=== PATIENT | female | born 1955 ===

== ENCOUNTER 2021-08-11 16:25 | Inpatient (IN) | payer MEDICARE, OTHER ==
[~2021-08-11] VITALS: Ht 152.4 cm; Wt 40.9 kg
[2021-08-11 17:58] LABS: Basophils # (auto) 0.1 10 ^3/uL (0-0.2); Basophils % (auto) 0.9 % (0.0-2.0); Eosinophils # (auto) 0 10 ^3/uL (0-0.8); Eosinophils % (auto) 0.2 % (0.0-7.0); Hematocrit 50.7 % (36.0-46.0); Hemoglobin 16.5 g/dL (12.2-16.2); Lymphocytes # (auto) 0.6 10 ^3/uL (0.4-5.4); Lymphocytes % (auto) 9.6 % (10.0-50.0); Mean Corpuscular Hemoglobin 32.2 pg (28.0-32.0); Mean Corpuscular Hgb Conc. 32.6 g/dL (32.0-36.0); Mean Corpuscular Volume 98.9 fL (80.0-100.0); Monocytes # (auto) 0.5 10 ^3/uL (0-1.3); Monocytes % (auto) 7.9 % (0.0-12.0); Neutrophils % (auto) 81.4 % (37.0-80.0); Nucleated Red Blood Cells % 0.3 %; Red Blood Cells 5.13 10^6/uL (4.0-5.20); White Blood Cell 6.1 10^3/uL (4.4-10.8)
[2021-08-11 18:17] LABS: Calcium 9.1 mg/dL (8.5-10.1); Potassium 3.6 mmol/L (3.5-5.1)
[2021-08-11 18:24] LABS: BUN/Creatinine Ratio 25.7; Bilirubin, Total 0.5 mg/dL (0.2-1.0); Total Protein 6.9 g/dL (6.4-8.2)
[2021-08-11] MEDS ORDERED: IOHEXOL 350 MG/ML 100ML IJ ONE (21:53)
[2021-08-12] MEDS ORDERED: cefTRIAXone 1GM/50ML D5W 50 ML IV ONE (00:45)
[2021-08-12] MEDS ORDERED: AZITHROMYCIN 500MG/ 250ML 250 ML IV ONE (00:45)
[2021-08-12] MEDS ORDERED: ONDANSETRON HCL 4 MG/2 ML VIAL IV PRN (02:00)
[2021-08-12] MEDS ORDERED: ALBUTEROL SULF 2.5 MG/0.5ML(0.5%) NEB SOLN NEB PRN (02:00)
[2021-08-12 04:34] LABS: INR 1.1 (0.9-1.15)
[2021-08-12] MEDS ORDERED: ENOXAPARIN SOD 40 MG/0.4 ML SYRINGE SC SCH (10:00)
[2021-08-12] MEDS ORDERED: ZINC SULFATE 220mg CAP or TAB PO SCH (10:00)
[2021-08-12] MEDS: PANTOPRAZOLE 40 MG TAB PO SCH (10:02)
[2021-08-12] MEDS: ASCORBIC ACID 500 MG TAB PO SCH ×2 (10:02→21:21)
[2021-08-12 16:45] VITALS: BP 121/83
[2021-08-12] MEDS ORDERED: Ensure HIGH Protein Chocolate 8oz Bottle PO SCH (18:00)
[2021-08-12] MEDS: ALBUTEROL SULF 2.5 MG/0.5ML(0.5%) NEB SOLN NEB SCH ×2 (19:22→23:26)
[2021-08-12] MEDS: ACETYLCYSTEINE 10 %(100MG/ML) SOL 4ML NEB SCH ×2 (19:22→23:26)
[2021-08-12] MEDS: IPRATROPIUM BROM 0.5 MG/2.5ML INH SOL NEB SCH ×2 (19:22→23:26)
[2021-08-12 19:55] VITALS: BP 107/68
[2021-08-12] MEDS: cefTRIAXone 1GM/50ML D5W 50 ML IV SCH (21:21)
[2021-08-12] MEDS ORDERED: AZITHROMYCIN 500MG/ 250ML 250 ML IV SCH (22:00)
[2021-08-13 05:38] VITALS: BP 143/97
[2021-08-13 07:34] LABS: Basophils # (auto) 0 10 ^3/uL (0-0.2); Basophils % (auto) 0.8 % (0.0-2.0); Eosinophils # (auto) 0 10 ^3/uL (0-0.8); Eosinophils % (auto) 0.8 % (0.0-7.0); Hemoglobin 13.9 g/dL (12.2-16.2); Lymphocytes # (auto) 0.6 10 ^3/uL (0.4-5.4); Lymphocytes % (auto) 9.7 % (10.0-50.0); Mean Corpuscular Hemoglobin 33.4 pg (28.0-32.0); Mean Corpuscular Hgb Conc. 33.8 g/dL (32.0-36.0); Mean Corpuscular Volume 98.6 fL (80.0-100.0); Monocytes # (auto) 0.9 10 ^3/uL (0-1.3); Neutrophils # (auto) 4.4 10 ^3/uL (1.6-8.6); Neutrophils % (auto) 73.7 % (37.0-80.0); Nucleated Red Blood Cells % 0.1 %; Red Blood Cells 4.16 10^6/uL (4.0-5.20); White Blood Cell 5.9 10^3/uL (4.4-10.8)
[2021-08-13 07:40] LABS: Potassium 3.4 mmol/L (3.5-5.1)
[2021-08-13 08:07] LABS: Albumin 2.5 g/dL (3.4-5.0); BUN/Creatinine Ratio 28.6; Bilirubin, Total 0.5 mg/dL (0.2-1.0); Calcium 8.3 mg/dL (8.5-10.1); Total Protein 5.4 g/dL (6.4-8.2)
[2021-08-13] MEDS: ALBUTEROL SULF 2.5 MG/0.5ML(0.5%) NEB SOLN NEB SCH ×4 (08:25→19:58)
[2021-08-13] MEDS: ACETYLCYSTEINE 10 %(100MG/ML) SOL 4ML NEB SCH ×4 (08:25→19:58)
[2021-08-13] MEDS: IPRATROPIUM BROM 0.5 MG/2.5ML INH SOL NEB SCH ×4 (08:25→19:57)
[2021-08-13 09:00] VITALS: BP 128/81
[2021-08-13] MEDS: PANTOPRAZOLE 40 MG TAB PO SCH (10:01)
[2021-08-13] MEDS: DOXYCYCLINE 100MG/250ML 250 ML IV SCH ×2 (10:01→21:22)
[2021-08-13] MEDS: ASCORBIC ACID 500 MG TAB PO SCH ×2 (10:01→21:22)
[2021-08-13 13:00] VITALS: BP 109/77
[2021-08-13 17:00] VITALS: BP 116/79
[2021-08-13] MEDS: Ensure Pudding Vanilla 4 oz Cup PO SCH ×2 (18:00→19:31)
[2021-08-13] MEDS: cefTRIAXone 1GM/50ML D5W 50 ML IV SCH (21:21)
[2021-08-13 21:30] VITALS: BP 114/77
[2021-08-14 05:00] VITALS: BP 140/91
[2021-08-14] MEDS: IPRATROPIUM BROM 0.5 MG/2.5ML INH SOL NEB SCH ×3 (07:04→19:51)
[2021-08-14] MEDS: ALBUTEROL SULF 2.5 MG/0.5ML(0.5%) NEB SOLN NEB SCH ×3 (07:04→19:51)
[2021-08-14] MEDS: ACETYLCYSTEINE 10 %(100MG/ML) SOL 4ML NEB SCH ×3 (07:05→19:51)
[2021-08-14] MEDS: Ensure Pudding Vanilla 4 oz Cup PO SCH ×3 (08:00→18:11)
[2021-08-14 09:00] VITALS: BP 120/82
[2021-08-14] MEDS: DOXYCYCLINE 100MG/250ML 250 ML IV SCH (10:54)
[2021-08-14] MEDS: PANTOPRAZOLE 40 MG TAB PO SCH (10:54)
[2021-08-14] MEDS: ASCORBIC ACID 500 MG TAB PO SCH ×2 (10:54→21:38)
[2021-08-14 13:00] VITALS: BP 138/93
[2021-08-14] MEDS ORDERED: VANCOMYCIN PER PHARMACY 0 MG IV SCH (14:00)
[2021-08-14] MEDS ORDERED: VANCOMYCIN 1GM/250ML 250 ML IV ONE (15:00)
[2021-08-14 17:00] VITALS: BP 138/91
[2021-08-14] MEDS: cefTRIAXone 1GM/50ML D5W 50 ML IV SCH (21:38)
[2021-08-14] MEDS: DOXYCYCLINE 100 MG TAB/CAP PO SCH (21:38)
[2021-08-14 22:00] VITALS: BP 118/83
[2021-08-15 05:00] VITALS: BP 123/83
[2021-08-15] MEDS: ACETYLCYSTEINE 10 %(100MG/ML) SOL 4ML NEB SCH ×6 (06:29→23:11)
[2021-08-15] MEDS: ALBUTEROL SULF 2.5 MG/0.5ML(0.5%) NEB SOLN NEB SCH ×6 (06:29→23:11)
[2021-08-15] MEDS: IPRATROPIUM BROM 0.5 MG/2.5ML INH SOL NEB SCH ×6 (06:30→23:11)
[2021-08-15 07:04] LABS: Basophils # (auto) 0 10 ^3/uL (0-0.2); Basophils % (auto) 0.7 % (0.0-2.0); Eosinophils # (auto) 0 10 ^3/uL (0-0.8); Eosinophils % (auto) 0.6 % (0.0-7.0); Hematocrit 40.9 % (36.0-46.0); Hemoglobin 13.7 g/dL (12.2-16.2); Lymphocytes # (auto) 0.6 10 ^3/uL (0.4-5.4); Lymphocytes % (auto) 9.8 % (10.0-50.0); Mean Corpuscular Hemoglobin 32.7 pg (28.0-32.0); Mean Corpuscular Hgb Conc. 33.6 g/dL (32.0-36.0); Mean Corpuscular Volume 97.5 fL (80.0-100.0); Monocytes # (auto) 0.9 10 ^3/uL (0-1.3); Monocytes % (auto) 16.7 % (0.0-12.0); Neutrophils # (auto) 4.1 10 ^3/uL (1.6-8.6); Neutrophils % (auto) 72.2 % (37.0-80.0); Nucleated Red Blood Cells % 0.2 %; Red Cell Distribution Width 13.9 % (11.8-14.3); White Blood Cell 5.7 10^3/uL (4.4-10.8)
[2021-08-15 07:21] LABS: Potassium 3.3 mmol/L (3.5-5.1)
[2021-08-15 07:29] LABS: BUN/Creatinine Ratio 19.4; Calcium 7.9 mg/dL (8.5-10.1)
[2021-08-15] MEDS: DOXYCYCLINE 100 MG TAB/CAP PO SCH ×2 (10:41→21:06)
[2021-08-15] MEDS: PANTOPRAZOLE 40 MG TAB PO SCH (10:42)
[2021-08-15] MEDS: ASCORBIC ACID 500 MG TAB PO SCH ×2 (10:42→21:06)
[2021-08-15] MEDS ORDERED: POTASSIUM EFFERVESENT TAB 25 MEQ PO ONE (12:15)
[2021-08-15] MEDS: Ensure Pudding Vanilla 4 oz Cup PO SCH ×3 (13:43→19:25)
[2021-08-15] MEDS: VANCOMYCIN 500 MG in D5W 5% 100 ML IV SCH ×2 (15:54→23:00)
[2021-08-15 20:11] LABS: Urine Bacteria NONE SEEN /hpf (None Seen); Urine Blood Negative /uL (Negative); Urine Mucus FEW (None Seen); Urine WBC 5 /hpf (0 - 5)
[2021-08-15 20:23] LABS: Protein, Urine 29.3 mg/dL (0.0-11.9)
[2021-08-15] MEDS: cefTRIAXone 1GM/50ML D5W 50 ML IV SCH (21:06)
[2021-08-15 22:00] VITALS: BP 119/79
[2021-08-16 05:00] VITALS: BP 119/84
[2021-08-16] MEDS: ALBUTEROL SULF 2.5 MG/0.5ML(0.5%) NEB SOLN NEB SCH ×2 (06:00→19:25)
[2021-08-16] MEDS: IPRATROPIUM BROM 0.5 MG/2.5ML INH SOL NEB SCH ×3 (06:00→19:25)
[2021-08-16] MEDS: ACETYLCYSTEINE 10 %(100MG/ML) SOL 4ML NEB SCH ×2 (06:02→19:25)
[2021-08-16 06:21] LABS: BUN/Creatinine Ratio 29.7; Calcium 7.8 mg/dL (8.5-10.1); Potassium 4.4 mmol/L (3.5-5.1)
[2021-08-16] MEDS: VANCOMYCIN 500 MG in D5W 5% 100 ML IV SCH ×2 (06:26→15:14)
[2021-08-16 08:00] VITALS: BP 111/71
[2021-08-16] MEDS: DOXYCYCLINE 100 MG TAB/CAP PO SCH ×2 (10:32→21:39)
[2021-08-16] MEDS: Ensure Pudding Vanilla 4 oz Cup PO SCH ×3 (10:32→19:26)
[2021-08-16] MEDS: ASCORBIC ACID 500 MG TAB PO SCH ×2 (10:32→21:39)
[2021-08-16] MEDS: PANTOPRAZOLE 40 MG TAB PO SCH (10:33)
[2021-08-16 12:00] VITALS: BP 123/72
[2021-08-16] MEDS: LORazepam 0.5 MG TAB PO PRN (15:15)
[2021-08-16 17:00] VITALS: BP 130/70
[2021-08-16] MEDS: ACETAMINOPHEN 325 MG TAB PO PRN (21:39)
[2021-08-16] MEDS: cefTRIAXone 1GM/50ML D5W 50 ML IV SCH (21:39)
[2021-08-16 22:00] VITALS: BP 138/91
[2021-08-17 05:13] VITALS: BP 115/70
[2021-08-17 06:05] LABS: Calcium 7.9 mg/dL (8.5-10.1); Potassium 3.9 mmol/L (3.5-5.1)
[2021-08-17 06:07] LABS: BUN/Creatinine Ratio 27.8
[2021-08-17] MEDS: IPRATROPIUM BROM 0.5 MG/2.5ML INH SOL NEB SCH ×4 (07:58→19:17)
[2021-08-17] MEDS: ALBUTEROL SULF 2.5 MG/0.5ML(0.5%) NEB SOLN NEB SCH ×4 (07:58→19:17)
[2021-08-17] MEDS: ACETYLCYSTEINE 10 %(100MG/ML) SOL 4ML NEB SCH ×4 (07:59→19:17)
[2021-08-17 09:28] VITALS: BP 122/81
[2021-08-17] MEDS: DOXYCYCLINE 100 MG TAB/CAP PO SCH ×2 (10:17→21:18)
[2021-08-17] MEDS: PANTOPRAZOLE 40 MG TAB PO SCH (10:17)
[2021-08-17] MEDS: ASCORBIC ACID 500 MG TAB PO SCH ×2 (10:17→21:19)
[2021-08-17] MEDS: Ensure Pudding Vanilla 4 oz Cup PO SCH ×2 (10:17→14:02)
[2021-08-17 13:51] VITALS: BP 121/83
[2021-08-17] MEDS: LORazepam 0.5 MG TAB PO PRN (17:02)
[2021-08-17 17:13] VITALS: BP 127/87
[2021-08-17] MEDS: cefTRIAXone 1GM/50ML D5W 50 ML IV SCH (21:18)
[2021-08-17] MEDS: ACETAMINOPHEN 325 MG TAB PO PRN (21:19)
[2021-08-17 22:00] VITALS: BP 126/81
[2021-08-18] MEDS: ACETYLCYSTEINE 10 %(100MG/ML) SOL 4ML NEB SCH ×4 (00:13→21:01)
[2021-08-18] MEDS: ALBUTEROL SULF 2.5 MG/0.5ML(0.5%) NEB SOLN NEB SCH ×4 (00:13→21:01)
[2021-08-18] MEDS: IPRATROPIUM BROM 0.5 MG/2.5ML INH SOL NEB SCH ×4 (00:13→21:01)
[2021-08-18 05:00] VITALS: BP 106/77
[2021-08-18 07:02] LABS: Potassium 4.3 mmol/L (3.5-5.1)
[2021-08-18 07:07] LABS: BUN/Creatinine Ratio 47.8; Calcium 8.5 mg/dL (8.5-10.1)
[2021-08-18] MEDS: Ensure Pudding Vanilla 4 oz Cup PO SCH ×3 (08:00→18:28)
[2021-08-18] MEDS: DOXYCYCLINE 100 MG TAB/CAP PO SCH ×2 (08:57→21:30)
[2021-08-18] MEDS: ASCORBIC ACID 500 MG TAB PO SCH ×2 (08:57→21:30)
[2021-08-18] MEDS: PANTOPRAZOLE 40 MG TAB PO SCH (08:57)
[2021-08-18 09:05] VITALS: BP_SYST 103; BP_SYST 124; BP_DIAS 65; BP_DIAS 84
[2021-08-18] MEDS ORDERED: IOHEXOL 300 MG/ML 100ML BOTTLE IJ ONE (11:15)
[2021-08-18 13:00] VITALS: BP 124/85
[2021-08-18] MEDS ORDERED: LORazepam 2MG/ML-1ML VIAL IV ONE (13:45)
[2021-08-18] MEDS ORDERED: GADOTERATE MEG 7.5 MMOL/15ml INJ (0.5MMOL/ml) IV ONE (14:22)
[2021-08-18] MEDS: SODIUM CHLORIDE 0.9% 1,000 ML IV SCH (14:24)
[2021-08-18 17:03] VITALS: BP 111/67
[2021-08-18] MEDS: cefTRIAXone 1GM/50ML D5W 50 ML IV SCH (21:30)
[2021-08-18 22:00] VITALS: BP 131/85
[2021-08-19] VITALS (7 sets, daily range): BP systolic 125–139; BP diastolic 83–94
[2021-08-19] MEDS: SODIUM CHLORIDE 0.9% 1,000 ML IV SCH ×3 (00:35→15:40)
[2021-08-19] MEDS: ACETAMINOPHEN 325 MG TAB PO PRN (00:53)
[2021-08-19] MEDS: ACETYLCYSTEINE 10 %(100MG/ML) SOL 4ML NEB SCH ×4 (06:00→19:04)
[2021-08-19] MEDS: ALBUTEROL SULF 2.5 MG/0.5ML(0.5%) NEB SOLN NEB SCH ×4 (06:00→19:04)
[2021-08-19] MEDS: IPRATROPIUM BROM 0.5 MG/2.5ML INH SOL NEB SCH ×4 (06:00→19:05)
[2021-08-19] MEDS: Ensure Pudding Vanilla 4 oz Cup PO SCH ×3 (08:00→18:00)
[2021-08-19 08:08] LABS: BUN/Creatinine Ratio 32.1; Calcium 8.3 mg/dL (8.5-10.1); Potassium 4.1 mmol/L (3.5-5.1)
[2021-08-19] MEDS: ASCORBIC ACID 500 MG TAB PO SCH ×2 (10:22→21:24)
[2021-08-19] MEDS: DexAMETHasone 4 MG TAB PO SCH ×2 (10:22→21:24)
[2021-08-19] MEDS: PANTOPRAZOLE 40 MG TAB PO SCH (10:22)
[2021-08-19] MEDS: DOXYCYCLINE 100 MG TAB/CAP PO SCH ×2 (10:22→21:24)
[2021-08-19 19:17] LABS: INR 0.99 (0.9-1.15); Partial Thromboplastin Time 29.9 sec (23.6-33.0)
[2021-08-19] MEDS: cefTRIAXone 1GM/50ML D5W 50 ML IV SCH (21:25)
[2021-08-20] MEDS: LORazepam 0.5 MG TAB PO PRN (01:22)
[2021-08-20] MEDS: SODIUM CHLORIDE 0.9% 1,000 ML IV SCH (02:51)
[2021-08-20 05:00] VITALS: BP 139/100
[2021-08-20] MEDS: IPRATROPIUM BROM 0.5 MG/2.5ML INH SOL NEB SCH ×4 (06:08→18:34)
[2021-08-20] MEDS: ACETYLCYSTEINE 10 %(100MG/ML) SOL 4ML NEB SCH ×4 (06:09→18:34)
[2021-08-20] MEDS: ALBUTEROL SULF 2.5 MG/0.5ML(0.5%) NEB SOLN NEB SCH ×4 (06:09→18:34)
[2021-08-20] MEDS: Ensure Pudding Vanilla 4 oz Cup PO SCH ×3 (08:00→18:25)
[2021-08-20] MEDS: DexAMETHasone 4 MG TAB PO SCH ×2 (08:47→21:57)
[2021-08-20] MEDS: ASCORBIC ACID 500 MG TAB PO SCH ×2 (08:47→21:57)
[2021-08-20] MEDS: PANTOPRAZOLE 40 MG TAB PO SCH (08:47)
[2021-08-20] MEDS: DOXYCYCLINE 100 MG TAB/CAP PO SCH ×2 (08:47→21:57)
[2021-08-20] MEDS ORDERED: ceFAZolin 1GM VL ONE (09:39)
[2021-08-20] MEDS ORDERED: HEPARIN 1,000 UNITS/ml 1ML VIAL ONE (09:40)
[2021-08-20] MEDS ORDERED: HEPARIN SODIUM (PORCINE) 5000 UNITS/ML 1ML VIAL ONE (09:40)
[2021-08-20] MEDS ORDERED: ceFAZolin 1GM/50ML 50 ML IV ONE (09:50)
[2021-08-20 09:53] VITALS: BP 137/84
[2021-08-20] MEDS ORDERED: PANT40T PO (10:36)
[2021-08-20] MEDS ORDERED: ALBUAER3 IN (10:36)
[2021-08-20 12:06] LABS: Basophils # (auto) 0 10 ^3/uL (0-0.2); Basophils % (auto) 0.4 % (0.0-2.0); Eosinophils # (auto) 0 10 ^3/uL (0-0.8); Eosinophils % (auto) 0.1 % (0.0-7.0); Hematocrit 39.1 % (36.0-46.0); Hemoglobin 12.9 g/dL (12.2-16.2); Lymphocytes # (auto) 0.6 10 ^3/uL (0.4-5.4); Mean Corpuscular Hgb Conc. 32.9 g/dL (32.0-36.0); Mean Corpuscular Volume 97.2 fL (80.0-100.0); Monocytes # (auto) 0.5 10 ^3/uL (0-1.3); Monocytes % (auto) 8.8 % (0.0-12.0); Neutrophils # (auto) 5.1 10 ^3/uL (1.6-8.6); Neutrophils % (auto) 81.7 % (37.0-80.0); Nucleated Red Blood Cells % 0.9 %; Red Blood Cells 4.02 10^6/uL (4.0-5.20); Red Cell Distribution Width 13.7 % (11.8-14.3); White Blood Cell 6.2 10^3/uL (4.4-10.8)
[2021-08-20 12:25] LABS: BUN/Creatinine Ratio 34.5; Calcium 8.8 mg/dL (8.5-10.1); Potassium 4.1 mmol/L (3.5-5.1)
[2021-08-20] MEDS ORDERED: fentaNYL CITRATE 100 MCG/2 ML VL ONE (12:28)
[2021-08-20] MEDS ORDERED: PROPOFOL 10 MG/ML 20 ML IV ONE (12:28)
[2021-08-20] MEDS ORDERED: ONDANSETRON HCL 4 MG/2 ML VIAL ONE (12:28)
[2021-08-20] MEDS ORDERED: DexAMETHasone SOD PHOS 10MG/1ML VIAL INJ ONE (12:28)
[2021-08-20] MEDS ORDERED: MIDAZOLAM HCL 2MG/2ML 2ml VIAL (1mg/ml) ONE (12:28)
[2021-08-20] MEDS ORDERED: LIDOCAINE W/ EPINEPHRINE 1% 20ML VIAL ONE (12:34)
[2021-08-20] MEDS ORDERED: METOCLOPRAMIDE HCL 5MG/ml INJ 2ml VIAL IV PRN (12:45)
[2021-08-20] MEDS ORDERED: HYDROmorphone HCL 2 MG/ML VL IV PRN (12:45)
[2021-08-20] MEDS ORDERED: MORPHINE SULFATE INJECTION 2 MG/ML SYRG IV PRN (12:45)
[2021-08-20 13:00] VITALS: BP 131/88
[2021-08-20 16:56] VITALS: BP 133/86
[2021-08-20] MEDS: TEMAZEPAM 15 MG CAP PO PRN (21:57)
[2021-08-20] MEDS: cefTRIAXone 1GM/50ML D5W 50 ML IV SCH (21:57)
[2021-08-20 22:00] VITALS: BP 119/76
[2021-08-21] MEDS: ACETYLCYSTEINE 10 %(100MG/ML) SOL 4ML NEB SCH ×4 (00:19→19:04)
[2021-08-21] MEDS: IPRATROPIUM BROM 0.5 MG/2.5ML INH SOL NEB SCH ×4 (00:19→19:04)
[2021-08-21] MEDS: ALBUTEROL SULF 2.5 MG/0.5ML(0.5%) NEB SOLN NEB SCH ×4 (00:19→19:04)
[2021-08-21 05:16] VITALS: BP 138/81
[2021-08-21] MEDS: Ensure Pudding Vanilla 4 oz Cup PO SCH ×2 (08:00→12:00)
[2021-08-21 09:24] VITALS: BP 109/70
[2021-08-21] MEDS: PANTOPRAZOLE 40 MG TAB PO SCH (10:00)
[2021-08-21] MEDS: ASCORBIC ACID 500 MG TAB PO SCH ×2 (10:00→22:21)
[2021-08-21] MEDS: DOXYCYCLINE 100 MG TAB/CAP PO SCH ×2 (10:00→22:21)
[2021-08-21] MEDS: DexAMETHasone 4 MG TAB PO SCH ×2 (10:00→22:20)
[2021-08-21 11:36] LABS: Potassium 4.2 mmol/L (3.5-5.1)
[2021-08-21 11:41] LABS: BUN/Creatinine Ratio 27.3; Calcium 8.9 mg/dL (8.5-10.1)
[2021-08-21] MEDS ORDERED: MORPHINE SULFATE INJECTION 2 MG/ML SYRG IV PRN (16:15)
[2021-08-21] MEDS ORDERED: HYDROcodone-ACET 5/325MG TAB PO PRN (16:15)
[2021-08-21 17:00] VITALS: BP 128/85
[2021-08-21 22:00] VITALS: BP 115/87
[2021-08-21] MEDS: cefTRIAXone 1GM/50ML D5W 50 ML IV SCH (22:21)
[2021-08-22 05:00] VITALS: BP 148/94
[2021-08-22] MEDS: ALBUTEROL SULF 2.5 MG/0.5ML(0.5%) NEB SOLN NEB SCH ×3 (07:35→19:06)
[2021-08-22] MEDS: IPRATROPIUM BROM 0.5 MG/2.5ML INH SOL NEB SCH ×3 (07:35→19:06)
[2021-08-22] MEDS: ACETYLCYSTEINE 10 %(100MG/ML) SOL 4ML NEB SCH ×3 (07:36→19:06)
[2021-08-22] MEDS: Ensure Pudding Vanilla 4 oz Cup PO SCH ×2 (08:00→12:00)
[2021-08-22 09:00] VITALS: BP 137/88
[2021-08-22] MEDS: DexAMETHasone 4 MG TAB PO SCH ×2 (09:42→21:51)
[2021-08-22] MEDS: DOXYCYCLINE 100 MG TAB/CAP PO SCH ×2 (09:42→21:51)
[2021-08-22] MEDS: ASCORBIC ACID 500 MG TAB PO SCH ×2 (09:43→21:51)
[2021-08-22] MEDS: PANTOPRAZOLE 40 MG TAB PO SCH (09:43)
[2021-08-22 09:45] LABS: Calcium 8.8 mg/dL (8.5-10.1); Potassium 3.9 mmol/L (3.5-5.1)
[2021-08-22 09:50] LABS: BUN/Creatinine Ratio 47.8
[2021-08-22 13:00] VITALS: BP 149/94
[2021-08-22 17:00] VITALS: BP 131/89
[2021-08-22] MEDS: cefTRIAXone 1GM/50ML D5W 50 ML IV SCH (21:51)
[2021-08-22 22:00] VITALS: BP 126/83
[2021-08-22] MEDS: TEMAZEPAM 15 MG CAP PO PRN (22:34)
[2021-08-23 05:00] VITALS: BP 134/95
[2021-08-23] MEDS: ACETYLCYSTEINE 10 %(100MG/ML) SOL 4ML NEB SCH ×3 (06:03→12:00)
[2021-08-23] MEDS: ALBUTEROL SULF 2.5 MG/0.5ML(0.5%) NEB SOLN NEB SCH ×3 (06:04→12:00)
[2021-08-23] MEDS: IPRATROPIUM BROM 0.5 MG/2.5ML INH SOL NEB SCH ×3 (06:04→12:00)
[2021-08-23] MEDS: Ensure Pudding Vanilla 4 oz Cup PO SCH (07:42)
[2021-08-23] MEDS: DOXYCYCLINE 100 MG TAB/CAP PO SCH (10:08)
[2021-08-23] MEDS: ASCORBIC ACID 500 MG TAB PO SCH (10:08)
[2021-08-23] MEDS: PANTOPRAZOLE 40 MG TAB PO SCH (10:08)
[2021-08-23] MEDS: DexAMETHasone 4 MG TAB PO SCH (10:09)
[2021-08-23] MEDS ORDERED: DEX4T PO (11:09)
[2021-08-23 12:30] VITALS: BP 114/78
== END 2021-08-23 13:27 | disposition home health service (06) | DRG 166 ==
LOC: ER 16:25 → EDBD 16:25 → OVERFLOW 08-12 01:49 → CENTRAL 08-12 16:46
PROVIDERS: ADMIT Nurse Practitioner; ATTEND Internal Medicine
PROC: 0W993ZZ Drainage of Right Pleural Cavity, Percutaneous Approach (ICD-10-PCS; 2021-08-14)
PROC: 0W9B3ZZ Drainage of Left Pleural Cavity, Percutaneous Approach (ICD-10-PCS; 2021-08-15)
PROC: 02HV33Z Insertion of Infusion Device into Superior Vena Cava, Percutaneous Approach (ICD-10-PCS; 2021-08-20)
PROC: 0JH60WZ Insertion of Totally Implantable Vascular Access Device into Chest Subcutaneous Tissue and Fascia, Open Approach (ICD-10-PCS; principal; 2021-08-20 12:50)
DX: C34.90 Malignant neoplasm of unspecified part of unspecified bronchus or lung (principal); J18.9 Pneumonia, unspecified organism; J96.01 Acute respiratory failure with hypoxia; E43 Unspecified severe protein-calorie malnutrition; C79.51 Secondary malignant neoplasm of bone; I31.3 Pericardial effusion (noninflammatory); C79.31 Secondary malignant neoplasm of brain; J98.11 Atelectasis; Z68.1 Body mass index [BMI] 19.9 or less, adult; I27.20 Pulmonary hypertension, unspecified; Z20.822 Contact with and (suspected) exposure to COVID-19; Z66 Do not resuscitate; F17.210 Nicotine dependence, cigarettes, uncomplicated; D75.1 Secondary polycythemia; E87.6 Hypokalemia; Z87.01 Personal history of pneumonia (recurrent)
CPT/HCPCS: 36415; 70553; 71045; 71250; 71275; 74177; 78306; 80048; 80053; 80202; 81001; 82570; 83880; 83986; 84156; 84300; 84484; 85025; 85610; 85730; 86850; 86900; 86901; 87040; 87077; 87205; 87426; 89051; 93005; 93306; 94640; G0378; J0690; J0696; J1100; J2250; J2405; J2704; J3490; J7060